=== PATIENT | female | born 1985 | race Caucasian/White ===

== ENCOUNTER 2023-09-02 18:47 | Emergency (ER) | payer BC, OTHER | END 2023-09-02 19:23 | disposition home or self-care (01) | LOC: BURERS 18:47 | DX: S80.12XA Contusion of left lower leg, initial encounter (principal); F84.0 Autistic disorder; X50.1XXA Overexertion from prolonged static or awkward postures, initial encounter; Y93.01 Activity, walking, marching and hiking ==